=== PATIENT | female | born 1970 | race Hispanic/Latino ===

== ENCOUNTER → 2018-02-12 | Day surgery (SDC) | payer BC ==
[~2018-02-12] MED LIST: BACITRACIN 50,000 UNIT VIAL ONE; BUPIVACAINE 0.25%/EPI 30ML SDV INJ ONE; CEFAZOLIN SOD 1 GM VIAL ONE; DEXAMETHASONE SOD PHOS INJ 4 MG/ML VIAL ONE; ESTROGENS CONJUGATED VAGINAL CR 45 GM TUBE PV ONE; FENTANYL CITRATE/PF 100MCG/2 ML INJ ONE; IOPAMIDOL 300MG/ML 50ML INFUS..BTL IV ONE; KETOROLAC TROMETHAMINE 30 MG/ML VIAL ONE; LIDOCAINE HCL 2% LOCAL INJ 5 ML SDV VIAL INJ ONE; METFORMIN HCL850 MG PO; METHYLENE BLUE 1% INJ 10 ML VIAL INJ ONE; MIDAZOLAM HCL 2 MG/2 ML VIAL ONE; NEOSTIGMINE 1 MG/ML 10ML VIAL ONE; ONDANSETRON HCL INJ 2 MG/ML VIAL ONE; PROGESTERONE100 MG PO; PROPOFOL IV EMULSION 10 MG/ML 20 ML VIAL ONE; SEVOFLURANE INHAL SOLN 250 ML PEN BTL ONE
[2018-02-12 09:08] LABS: ANION GAP 14.9 mmol/L (8-16); BLOOD UREA NITROGEN 8 mg/dL (7-26); BUN/CREATININE RATIO 12 (6-25); CALCIUM 9.3 mg/dL (8.4-10.2); CARBON DIOXIDE 25 mmol/L (22-29); CHLORIDE 104 mmol/L (98-107); CREATININE, SERUM 0.69 mg/dL (0.57-1.11); EST GLOMERULAR FILTRATION RATE > 60 ML/MIN (60-); GLUCOSE 142 mg/dL (74-118); POTASSIUM 3.9 mmol/L (3.5-5.1); SODIUM 140 mmol/L (136-145)
[2018-02-12 11:05] VITALS: BP 116/58
--- NOTE | 2018-02-12 16:19 | Operative Report ---
DATE OF PROCEDURE: February 12, 2018 SERVICE: Urology. PREOPERATIVE DIAGNOSES 1. Stress urinary incontinence. 2. Small cystocele. 3. Small rectocele. 4. History of urinary tract infection. POSTOPERATIVE DIAGNOSES 1. Stress urinary incontinence. 2. Small cystocele. 3. Small rectocele. 4. History of urinary tract infection. OPERATIONS PERFORMED 1. Cystoscopy and bilateral retrograde pyelogram. This is done with no connection to the stress urinary incontinence. 2. Interpretation of x-ray, radiologist not present. 3. Supervision of fluoroscopy, radiologist not present. 4. Mid transurethral sling TVT-O. PATIENT INSURANCE CLERK: None. ANESTHESIA: General. CLINICAL INDICATION NOTE: This is a 47-year-old patient that stress type of urine incontinence and small cystocele. She was brought for mid urethral sling and assessment of the upper tract. Procedure was discussed with the patient. Potential benefits and complications discussed, explained, accepted. Patient is aware. She will require the Barber catheter for a few days after the procedure. DESCRIPTION OF PROCEDURE AND FINDINGS: After proper level of anesthesia was achieved, the patient was placed in lithotomy position, prepped and draped in usual sterile fashion. Urethra inspected, is unremarkable. Patient does have a small cystocele and small rectocele. Bladder itself is unremarkable. Both ureteral orifices are in normal position. No tumor or foreign body present. Bilateral retrograde pyelograms were done using a cone-tip and no intrinsic lesions are seen. Drainage was prompt from both sides. Following this, a 16-[place] Barber catheter. The patient had infiltration of the anterior wall of the vaginal and both obturator fossae with half-percent Marcaine with epi. Following this, a short incision was made in the anterior wall of the vagina. Each side was grasped and dissection of blunt and sharp was done on each side. The Allis clamps were holding both sides of the incision. There was some bleeding noticed. Any visible bleeding points were coagulated with Bugbee electrode. A resection was done toward the obturator fossa on each side. Following this, the TVT-O tape was inserted in the retro fashion, away from below and out through the obturator fossa. Both sides were placed without any difficulty. Following this, the tape tension was adjusted, putting it in proper place after the urethra with the Hegar #6. The excessive tape was then excised and the suprapubic tiny incisions were closed each with a 4-0 chronic catgut single stitch. Following this, the wound was irrigated. The bladder was inspected again. No injury in the urethra or bladder was noticed. The vaginal incision was closed with a running 2-0 Vicryl suture. The vaginal packing with ointment was placed and a 16-[place] Barber catheter was kept in place. Patient tolerated procedure well, was transferred in satisfactory condition to recovery. Postop instructions were given. Patient advised if should be any problem to call my office or come to the ER. Barber will be removed at home on Sunday morning. If any problem arise, they will call my office or come to the ER. Job#: [id number] SAMANTHA
== END | disposition home or self-care (01) ==
LOC: OR 07:25
PROVIDERS: ATTEND Urology
DX: N39.3 Stress incontinence (female) (male) (principal); N39.0 Urinary tract infection, site not specified; N81.10 Cystocele, unspecified; N81.6 Rectocele; E11.9 Type 2 diabetes mellitus without complications; N20.0 Calculus of kidney; Z88.6 Allergy status to analgesic agent; Z79.84 Long term (current) use of oral hypoglycemic drugs
CPT/HCPCS: 36415; 52005; 57288; 74420; 80048; 82948; 93005; C1758; J0690; J1100; J1885; J2001; J2250; J2405; J2710; Q9967